=== PATIENT | female | born 1960 | race Caucasian/White ===

== ENCOUNTER 2023-12-20 20:22 | Emergency (ER) | payer BC ==
[~2023-12-20] VITALS: Ht 165.1 cm; Wt 56.7 kg
[2023-12-20 20:52] VITALS: PULSE 90; RESP 20; O2SAT 100
[2023-12-20] MEDS: ALBUTEROL SULF 0.083% NEB SOLN 3 ML NEB NEB STA (21:03)
[2023-12-20] MEDS: IPRATROPIUM BROMIDE 0.02% 2.5 ML NEB NEB ONE (21:04)
[2023-12-20 21:07] LABS: BASOPHILS # (AUTO) 0.1 (0.0-0.1); BASOPHILS % 0.7 % (0.0-1.0); EOSINOPHILS # (AUTO) 4.5 (0.0-0.4); EOSINOPHILS % 27.6 % (0.0-6.0); HEMATOCRIT 51.6 % (34.2-44.1); HEMOGLOBIN 17.8 g/dL (12.0-16.0); LYMPHOCYTES # (AUTO) 2.4 (1.0-3.2); LYMPHOCYTES % 14.8 % (18.0-39.1); MEAN CORPUSCULAR HGB CONC 34.5 g/dL (31-35); MEAN CORPUSCULAR VOLUME 95.6 fL (81-99); MONOCYTES % 6.1 % (4.4-11.3); NEUTROPHILS # (AUTO) 8.2 (2.1-6.9); NEUTROPHILS % 50.4 % (38.7-80.0); PLATELET COUNT 242 x10e3/uL (140-360); RED CELL DISTRIBUTION WIDTH 13.6 % (11.7-14.4); WHITE BLOOD COUNT 16.17 x10e3/uL (4.8-10.8)
[2023-12-20 21:10] LABS: INFLUENZAE A&B ANTIGEN (RAPID) NEGATIVE (NEGATIVE); RESPIRATORY SYNC. VIRUS NEGATIVE (NEGATIVE)
[2023-12-20 21:30] VITALS: TEMP 98.3
[2023-12-20 23:02] LABS: ALBUMIN 4.9 g/dL (3.5-5.0); ANION GAP 20.1 mmol/L (8-16); BILIRUBIN,TOTAL 0.5 mg/dL (0.2-1.2); CALCIUM 11.1 mg/dL (8.4-10.2); CREATININE, SERUM 1.13 mg/dL (0.57-1.11); TOTAL PROTEIN 9.6 g/dL (6.5-8.1)
[2023-12-20 23:08] LABS: TROPONIN I 0.269 ng/mL (0-0.300)
[2023-12-20 23:09] VITALS: PULSE 81; RESP 22
[2023-12-20 23:09] LABS: POTASSIUM 4.1 mmol/L (3.5-5.1)
[2023-12-20] MEDS: METHYLPREDNISOLONE SOD SUCC 125 MG/2ML VIAL IV ONE (23:11)
[2023-12-20] MEDS ORDERED: MEDROL4 M2 PO (23:48)
[2023-12-20] MEDS ORDERED: DOXYCYCLINE HY100 MG PO (23:48)
[2023-12-21] MEDS: DOXYCYCLINE HYCLATE TABLET 100 MG TAB PO ONE (00:01)
[2023-12-21 01:51] VITALS: BP 158/74; PULSE 71; RESP 20; O2SAT 100
[2023-12-21 04:35] LABS: BASOPHILS % (MANUAL) 1 % (0-1.5); EOSINOPHILS % (MANUAL) 23 % (0-7); LYMPHOCYTES % (MANUAL) 13 % (19-48); MONOCYTES % (MANUAL) 8 % (3.4-9.0); NEUTROPHILS % (MANUAL) 55 % (40-74); RBC MORPHOLOGY COMMENT NORMAL
[2023-12-21 04:36] LABS: PLATELET ESTIMATE ADEQUATE; PLATELET MORPHOLOGY COMMENT NORMAL
== END 2023-12-21 01:54 | disposition home or self-care (01) ==
LOC: ER 20:30
DX: R06.00 Dyspnea, unspecified (principal); J18.9 Pneumonia, unspecified organism; I10 Essential (primary) hypertension; J44.9 Chronic obstructive pulmonary disease, unspecified; E78.5 Hyperlipidemia, unspecified; Z11.52 Encounter for screening for COVID-19; R94.31 Abnormal electrocardiogram [ECG] [EKG]
CPT/HCPCS: 36415; 71045; 80053; 82550; 83880; 84484; 85025; 87400; 87420; 93005; 94640; 94799; 99284; J2919; U0002